=== PATIENT | male | born 1935 | race Caucasian/White ===

== ENCOUNTER 2017-05-25 06:33 | Outpatient (CLI) | payer MEDICARE, BC ==
[~2017-05-25] VITALS: Ht 175.3 cm; Wt 97.3 kg
--- NOTE | ~2017-05-25 | HEMODYNAMI ---
PATIENT:TRIP ALCARAZ MEDICAL RECORD: [id number] : 31 LOCATION:[facility] ADMISSION DATE: 05/25/17 Generatedon:05/25/201711:08 Patient name: TRIP ALCARAZ Patient #: [id number] SSN: : 1935 Date of study: 05/25/2017 Page: Of Hemodynamic Procedure Report Patient Data Patient Demographics Procedure consent was obtained First Name: TRIP Gender: Male Last Name: KIERAN : 1935 Middle Initial: E Age: 82 year(s) Patient #: [id number] Race: Unknown Additional ID: [id number] Contact details [address]: [address] [place] [address] State: [place] City: [place] Zip code: [address] Admission Admission Data Admission Date: 05/25/2017 Admission Time: 6:33 Procedure Procedure Types Cath Procedure Peripheral Cath Diagnostic Procedure Miscellaneous Procedure Description Procedure Date Procedure Date: 05/25/2017 Procedure Start Time: 10:01 Procedure Staff Name Function Niko Campbell MD Performing Physician Elías iRchmond RT Scrub Carolina Price RN Nurse Elías Richmond RT Monitor Procedure Data Cath Procedure Fluoroscopy Diagnostic fluoroscopy Total fluoroscopy Time: 7.6 time: 7.6 min min Diagnostic fluoroscopy Total fluoroscopy dose: 526 dose: 526 mGy mGy Contrast Material Contrast Material Type Amount (ml) Isovue 300 43 Diagnostic catheters Device Type Used For End Catheter Placement Merit Impress KA 2 5Fr 40CM catheter Procedure Medications Medication Administration Route Dosage Fentanyl I.V. 50 mcg Fentanyl I.V. 50 mcg Fentanyl I.V. 50 mcg Versed I.V. 1 mg Versed I.V. 1 mg Versed I.V. 1 mg Ancef (1Gm/50ml NS) 2 g Hemodynamics Rest Heart Rate: 96 (bpm) Snapshots Pre Cath Intra NCS Post Cath Vital Signs Time Heart Resp SPO2 NIBP (mmHg) Rhythm Pain Sedation Rate (ipm) (%) Status Level (bpm) 9:39:52 74 19 98 156/114(127) NSR 0 (11) 10(A) , No pain 9:44:12 70 21 98 161/118(139) NSR 0 (11) 10(A) , No pain 9:49:55 81 14 98 161/117(153) NSR 0 (11) 10(A) , No pain 9:55:39 77 17 98 163/105(136) NSR 0 (11) 10(A) , No pain 10:00:03 82 13 97 164/115(137) NSR 0 (11) 10(A) , No pain 10:04:23 84 15 96 169/102(133) NSR 0 (11) 10(A) , No pain 10:09:49 74 16 95 144/83(117) NSR 0 (11) 10(A) , No pain 10:14:01 78 14 92 151/92(129) NSR 0 (11) 10(A) , No pain 10:18:17 71 15 84 153/94(123) NSR 0 (11) 10(A) , No pain 10:22:37 74 13 90 148/91(119) NSR 0 (11) 10(A) , No pain 10:26:51 80 18 97 151/91(113) NSR 0 (11) 10(A) , No pain 10:31:05 76 14 97 137/98(127) NSR 0 (11) 10(A) , No pain 10:35:19 80 19 99 135/94(120) NSR 0 (11) 10(A) , No pain 10:39:33 67 13 88 130/83(104) NSR 0 (11) 10(A) , No pain 10:43:30 73 15 89 116/88(105) NSR 0 (11) 10(A) , No pain 10:47:40 71 15 90 136/83(127) NSR 0 (11) 10(A) , No pain 10:51:52 88 13 91 102/74(92) NSR 0 (11) 10(A) , No pain 10:56:02 71 14 95 103/62(90) NSR 0 (11) 10(A) , No pain 11:00:08 80 95 101/74(86) NSR 0 (11) 10(A) , No pain 11:04:13 68 96 105/70(81) NSR 0 (11) 10(A) , No pain Medications Time Medication Route Dose Verified Delivered Reason Notes Effectivene ss by by 10:05:11 Versed I.V. 1 mg Carolina Carolina for Albert Albert sedation RN RN 10:05:35 Fentanyl I.V. 50 Carolina Carolina for mcg Albert Albert sedation RN RN 10:14:35 Versed I.V. 1 mg Carolina Carolina for Albert Albert sedation RN RN 10:14:42 Fentanyl I.V. 50 Carolina Carolina for mcg Albert Albert sedation RN RN 10:20:50 Ancef 2 g Carolina Carolina (1Gm/50ml Albert Albert NS) RN RN 10:23:05 Versed I.V. 1 mg Carolina Carolina for Albert Albert sedation RN RN 10:23:50 Fentanyl I.V. 50 Carolina Carolina for mcg Albert Albert sedation RN gas load dispatcher Log Time Note 9:11:30 Elías Richmond RT (R) (CV) sent for patient. Start room use. 9:11:40 Time tracking: Regular hours 9:11:44 Plan of Care:Hemodynamics will remain stable., Cardiac rhythm will remain stable., Comfort level will be maintained., Respiratory function will remain adequate., Patient/ family verbilizes understanding of procedure., Procedure tolerated without complication., Recovers from procedure without complications.. 9:11:52 Patient received from Outpatients to IR Alert and oriented. Tansferred to table in Prone position. 9:12:02 Correct patient and procedure confirmed by team. 9:12:03 Signed procedure consent form obtained from patient. 9:12:04 ECG and BP/O2 sat monitors applied to patient. 9:12:10 Full Disclosure recording started 9:12:11 - 9:12:15 H&P Date Dictated: 05/25/2017 H&P Addendum completed by physician on day of procedure. (MUST COMPLETE FOR ALL OUTPATIENTS). 9:12:16 Pre-procedure instructions explained to patient. 9:12:16 Pre-op teaching completed and patient verbalized understanding. 9:12:18 Family in waiting room. 9:12:20 Patient NPO since Midnight. 9:12:26 Is the patient allergic to Iodine/contrast media? No. 9:12:28 Is patient on blood thinner?No 9:12:30 Patient diabetic? No. 9:12:33 - 9:12:34 ----Pre-sedation anethsthesia assessment.---- 9:12:36 Previous problem with sedation/anesthesia? No ? 9:12:37 Snore? Yes 9:12:39 Sleep apnea? No 9:12:46 Deviated septum? No 9:12:47 Opens mouth fully? Yes 9:12:52 Airway obstruction? Yes copad 9:12:57 Dentures? Yes out 9:13:02 Use device set IR Diagnostic 9:13:04 Acist Syringe opened to sterile field. 9:13:04 Acist Hand Control opened to sterile field. 9:13:05 Acist Manifold opened to sterile field. 9:13:05 Bag Decanter opened to sterile field. 9:13:05 Sterile Angiographic Pack opened to sterile field. 9:22:31 Pre procedure: right dorsailis pedis pulse Doppler 9:22:43 Pre procedure: right posterior tibial pulse Doppler 9:22:45 Sharps counted by scrub and verified by R.N. 9:22:45 Alarms reviewed by R. N. 9:22:51 Lumbar area was prepped with chlora-prep and draped in sterile fashion 9:38:24 Patient pain scale 0/10 no pain. 9:38:35 IV patent on arrival in right forearm with 0.9% NaCl at KVO. 9:38:45 Baseline sample Acquired. 9:38:45 Vital chart was started 9:38:51 Rhythm: sinus rhythm 9:59:17 Physician arrived 9:59:17 --------ALL STOP TIME OUT------ 9:59:18 Final Timeout: patient, procedure, and site verified with staff and physician. All members of the team are in agreement. 9:59:22 Lumbar site verified by team. 9:59:29 Physical assessment completed. ASA score P 3 - A patient with severe systemic disease as per Niko Campbell MD. 9:59:33 Sedation plan: IV Moderate Sedation Versed, Fentanyl 10:00:27 Procedure started. 10:01:43 Local anesthetic to Lumbar area with Lidocaine 1% by Niko Campbell MD.INITIAL ACCESS ONLY 10:01:46 KIT CATH TRNSLMBR ARTC TRNSLCNT opened to sterile field. 10:01:46 Cook DOC .035 guide wire opened to sterile field. 10:05:11 Versed 1 mg I.V. was administered by Carolina Price RN; for sedation; 10:05:35 Fentanyl 50 mcg I.V. was administered by Carolina Price RN; for sedation; 10:14:35 Versed 1 mg I.V. was administered by Carolina Price RN; for sedation; 10:14:42 Fentanyl 50 mcg I.V. was administered by Carolina Price RN; for sedation; 10:15:45 Steve BRITO 180 guide wire opened to sterile field. 10:20:50 Ancef (1Gm/50ml NS) 2 g was administered by Carolina Price RN; ; 10:21:49 A Merit Impress KA 2 5Fr 40CM catheter was advanced over the wire and used for . 10:23:05 Versed 1 mg I.V. was administered by Carolina Price RN; for sedation; 10:23:50 Fentanyl 50 mcg I.V. was administered by Carolina Price RN; for sedation; 10:24:[address] .035 145 glide wire opened to sterile field. 10:24:51 Terumo TORQUE DEVICE PLASTIC .038 opened to sterile field. 10:32:27 Cook MOVEABLE CORE guide wire opened to sterile field. 10:32:27 Cook Umu 20mm x 20cm Coil opened to sterile field. 10:36:24 Cook Umu 20mm x 20cm Coil opened to sterile field. 10:36:26 Cook Umu 20mm x 20cm Coil opened to sterile field. 10:38:06 Cook Umu 20mm x 20cm Coil opened to sterile field. 10:43:06 Procedure ended.(Physican Out) 10:47:01 Fluoroscopy time 07.60 minutes. 10:47:05 Fluoroscopy dose: 526 mGy 10:47:05 Flurop Dose total: 526 10:47:20 Contrast amount:Isovue 300 43ml. 10:52:41 Insertion/operative site no bleeding no hematoma. 10:52:48 Post Procedure Pulses reassessed and unchanged 10:53:04 Post Lumbar area:stable 10:53:08 Post-procedure physical assessment completed. ASA score P 3 - A patient with severe systemic disease as per Niko Campbell MD. 10:53:09 Post procedure instruction explained to patient.Patient verbalizes understanding. 10:53:10 Procedure and supply charges have been captured, reviewed, submitted an d are correct. 11:07:32 Report given to Outpatients. 11:07:36 Patient transfered to Outpatients with Bed. 11:08:15 Vital chart was stopped Device Usage Item Name Manufacture Quantity Catalog Hospital Part Current Minimal Lot# / Number Charge Number Stock Stock Serial# Code Acist Acist 1 67731 438230 236144 [id number] 20 Syringe Medical Systems Inc Acist Hand Acist 1 70095 880069 053318 253857 5 Control Medical Systems Inc Acist Acist 1 39031 644457 480256 940287 5 Manifold Medical Systems Inc Bag Decanter Microtek 1 2002S 406454 63604 526676 5 Medical Inc. Sterile Cardinal 1 [id number] 347721 984575 5 Angiographic Health Pack KIT CATH [facility] 1 Q66007 773095 203749 5 [id number] TRNSLMBR ARTC TRNSLCNT Cook [facility] Cook Medical 1 I77990 532727 399173 5 [id number] .035 guide wire Cook [facility] 1 O09192 439166 704984 5 [id number] 180 guide wire Merit Merit 1 [id number] 150867 152706 5 Impress KA 2 Medical 5Fr 40CM catheter Cook [facility] 1 S49784 090435 391467 5 [id number] ROADRUNNER .035 145 glide wire Terumo Freeman 1 TD01 518335 830754 683706 5 TORQUE Scientific DEVICE PLASTIC .038 [facility] 1 H04692 324062 928805 5 2562325 MOVEABLE CORE guide wire [facility] 4 [id number] 805940 105039 633726 5 [id number] 20mm x 20cm [id number] [facility] [id number] Signature Audit Commercial Point Stage Time Signature Unsigned Intra-Procedure 05/25/2017 Elías 11:08:12 AM Yi RT (R) (CV) Signatures Monitor : Eílas Signature : Yi RT Date : Time : [address] [address]
[2017-05-25 07:29] LABS: BASOPHILS 0.2 % (0-2); EOSINOPHILS 4.3 % (0-7); HEMATOCRIT 40.3 % (42.0-54.0); HEMOGLOBIN 14.3 g/dL (13.5-17.5); IMMATURE GRANULOCYTES 0.2 % (0-5); LYMPHOCYTES 15.9 % (15-50); MCH 34.5 pg (26.0-34.0); MCHC 35.5 g/dL (31.0-37.0); MCV 97.3 fL (80.0-100.0); MEAN PLATELET VOLUME 9.3 fL (7.4-10.4); MONOCYTES 15.6 % (2-11); NEUTROPHILS 63.8 % (40-80); PLATELET COUNT 128 10x3/uL (130-400); RBC 4.14 10x6/uL (4.20-6.10); RDW 13.3 % (11.5-14.5); WBC 4.4 10x3/uL (4.8-10.8)
[2017-05-25] MEDS ORDERED: PRESERVISION AR1 CAP PO (07:30)
[2017-05-25] MEDS ORDERED: K-TAB10 MEQ PO (07:31)
[2017-05-25] MEDS ORDERED: NEURONTIN 300300 MG PO (07:31)
[2017-05-25] MEDS ORDERED: HYDROCHLOROTHIA25 MG PO (07:32)
[2017-05-25] MEDS ORDERED: LOTREL 5/20 MG1 CAP (07:33)
[2017-05-25] MEDS ORDERED: CARDURA2 MG PO (07:33)
[2017-05-25] MEDS ORDERED: SYMBICORT 16010.2 GM INH (07:34)
[2017-05-25] MEDS ORDERED: COREG 3.1253.125 MG PO (07:34)
[2017-05-25] MEDS ORDERED: SPIRIVA18 MCG INH (07:35)
[2017-05-25] MEDS ORDERED: PROVENTIL HFA6.7 GM INH (07:36)
[2017-05-25 07:44] LABS: APTT 26.4 SECONDS (22.8-39.4); CALC OSMOLALITY 274 mosm/kg (275-300); CALCIUM 8.2 mg/dL (8.5-10.1); CARBON DIOXIDE 33.7 mmol/L (21.0-32.0); CHLORIDE - SERUM 98 mmol/L (98-107); CREATININE - SERUM 0.7 mg/dL (0.6-1.3); GLUCOSE 98 mg/dL (74-106); INR 1.28 (0.85-1.17); POTASSIUM - SERUM 3.5 mmol/L (3.5-5.1); PROTIME 15.8 SECONDS (11.6-15.0); SODIUM 138 mmol/L (136-145); UREA NITROGEN 9 mg/dL (7-18); eGFR NON AFRICAN AMERICAN > 90 mL/min (90-120)
[2017-05-25 07:59] VITALS: BP 140/90; Ht 175.3 cm; Wt 97.3 kg
--- NOTE | 2017-05-25 14:40 | NUR ---
1430 SITTING UP ON SIDE OF BED WITH URINAL IN PLACE. UNABLE TO VOID. Hari JOHNS R.N.
--- NOTE | 2017-05-25 15:51 | NUR ---
1445 ROUNDS BY [facility]. Hari JOHNS R.N.
--- NOTE | 2017-05-25 15:55 | NUR ---
1540 DRESSED. AWAKE & ALERT. GIVEN MED REC., [facility] ARTERIOGRAM D/C ISTRUCTIONS SHEET, [facility] D/C INSTRUCTIONS, & RTC APPT. PT VOICED UNDERSTANDING. TO PRIVATE CAR PER WHEELCHAIR BY THIS NURSE. HOME WITH , YENNY ALCARAZ. Hari JOHNS R.N.=
== END 2017-05-25 15:40 | disposition home or self-care (01) ==
LOC: D.OPS 06:33 → D.SP 08:00 → D.OPS 09:00 → D.SP 09:00 → D.OPS 15:40
PROVIDERS: Specialist
DX: T82.538A Leakage of other cardiac and vascular devices and implants, initial encounter (principal); Z01.812 Encounter for preprocedural laboratory examination

== ENCOUNTER 2019-02-16 11:26 | Outpatient (CLI) | payer MEDICARE, BC ==
[2019-02-15 07:23] LABS: BASOPHILS 0.1 % (0-2); EOSINOPHILS 0.3 % (0-7); HEMOGLOBIN 12.2 g/dL (13.5-17.5); IMMATURE GRANULOCYTES 0.1 % (0-5); LYMPHOCYTES 10.5 % (15-50); MCH 33.1 pg (26.0-34.0); MCHC 33.9 g/dL (31.0-37.0); MCV 97.6 fL (80.0-100.0); MEAN PLATELET VOLUME 9.8 fL (7.4-10.4); MONOCYTES 16.4 % (2-11); NEUTROPHILS 72.6 % (40-80); PLATELET COUNT 115 10x3/uL (130-400); RBC 3.69 10x6/uL (4.20-6.10); RDW 14.1 % (11.5-14.5); WBC 7.4 10x3/uL (4.8-10.8)
[2019-02-15 07:35] LABS: CALC OSMOLALITY 286 mosm/kg (275-300); CALCIUM 8.5 mg/dL (8.5-10.1); CARBON DIOXIDE 32.9 mmol/L (21.0-32.0); CHLORIDE - SERUM 104 mmol/L (98-107); GLUCOSE 111 mg/dL (74-106); POTASSIUM - SERUM 3.2 mmol/L (3.5-5.1); SODIUM 143 mmol/L (136-145); UREA NITROGEN 16 mg/dL (7-18); eGFR NON AFRICAN AMERICAN 75 mL/min (90-120)
[2019-02-15 07:49] LABS: APTT 33.6 SECONDS (22.8-39.4); INR 1.62 (0.85-1.17); PROTIME 18.6 SECONDS (11.6-15.0)
[~2019-02-16] VITALS: Ht 175.3 cm; Wt 95.5 kg
[~2019-02-16 11:26] MED LIST: CARDURA2 MG PO; COREG 3.1253.125 MG PO; HYDROCHLOROTHIA25 MG PO; K-TAB10 MEQ PO; LOTREL 5/20 MG1 CAP; NEURONTIN 300300 MG PO; PRESERVISION AR1 CAP PO; PROVENTIL HFA6.7 GM INH; SPIRIVA18 MCG INH; SYMBICORT 16010.2 GM INH
[2019-02-16 11:57] LABS: HEMATOCRIT 35.7 % (42.0-54.0); HEMOGLOBIN 12.6 g/dL (13.5-17.5); LYMPHOCYTES 11.2 % (15-50); MCH 34.5 pg (26.0-34.0); MCHC 35.3 g/dL (31.0-37.0); MCV 97.8 fL (80.0-100.0); MEAN PLATELET VOLUME 9.3 fL (7.4-10.4); NEUTROPHILS 76.9 % (40-80); PLATELET COUNT 117 10x3/uL (130-400); RBC 3.65 10x6/uL (4.20-6.10); RDW 14.1 % (11.5-14.5); WBC 6.7 10x3/uL (4.8-10.8)
[2019-02-16 12:04] LABS: APTT 32.4 SECONDS (22.8-39.4); INR 1.61 (0.85-1.17); PROTIME 18.6 SECONDS (11.6-15.0)
[2019-02-16 12:05] LABS: ANION GAP 8.4 mmol/L (8-16); CALCIUM 8.4 mg/dL (8.5-10.1); CREATININE - SERUM 1.1 mg/dL (0.6-1.3); POTASSIUM - SERUM 3.4 mmol/L (3.5-5.1)
[2019-02-16 13:08] LABS: ALBUMIN 3.1 g/dL (3.4-5.0); BILIRUBIN - DIRECT 0.69 mg/dL (0.00-0.30); BILIRUBIN - INDIRECT 1.48 mg/dL (0.00-1.00); BILIRUBIN - TOTAL 2.17 mg/dL (0.2-1.3); PROTEIN - SERUM 6.7 g/dL (6.4-8.2)
[2019-02-16] MEDS ORDERED: LASIX80 MG PO (13:20)
[2019-02-16] MEDS ORDERED: ELIQUIS2.5 MG PO (13:21)
[2019-02-16 13:26] VITALS: BP 126/80; Ht 175.3 cm; Wt 95.5 kg
--- NOTE | 2019-02-16 19:23 | NUR ---
NO PROCEDURE PERFORMED ON PATIENT DUE TO AN ELEVATED INR. DR VÁZQUEZ AND BEDSIDE AND STATES HE WILL MANAGE PATIENT THROUGH HIS OFFICE. IV D/C'D WITH CANNULA INTACT.
== END 2019-02-16 17:20 | disposition home or self-care (01) ==
LOC: D.SP 11:26
PROVIDERS: ATTEND Specialist
DX: I71.4 Abdominal aortic aneurysm, without rupture (principal); Z53.09 Procedure and treatment not carried out because of other contraindication; Z01.812 Encounter for preprocedural laboratory examination

== ENCOUNTER 2019-04-13 07:38 | Outpatient (CLI) | payer MEDICARE, BC ==
[~2019-04-13] VITALS: Ht 175.3 cm; Wt 90.7 kg
--- NOTE | ~2019-04-13 | HEMODYNAMI ---
PATIENT:TRIP ALCARAZ MEDICAL RECORD: [id number] : 31 [id number] ADMISSION DATE: 04/13/19 Generatedon:04/13/201911:55 Patient name: TRIP ALCARAZ Patient #: [id number] SSN: : 1935 Date of study: 04/13/2019 Page: Of Hemodynamic Procedure Report Patient Data Patient Demographics Procedure consent was obtained First Name: TRIP Gender: Male Last Name: KIERAN : 1935 [facility] Initial: E Age: 84 year(s) Patient #: [id number] Race: Unknown Additional ID: [id number] Contact details Address: [address] [place] [address] State: [place] City: [place] Zip code: [address] Past Medical History Allergies: No known allergies Admission Admission Data Admission Date: 04/13/2019 Admission Time: 7:38 Procedure Procedure Types Cath Procedure Peripheral Cath Diagnostic Procedure Abd/Extremity Aortagram Procedure Description Procedure Date Procedure Date: 04/13/2019 Procedure Start Time: 10:27 Procedure Staff Name Function Niko Campbell MD Performing Physician Dinorah Kaminski RT Corporate Travel Agent Caterina Ruby RN Nurse Olivia Glass RN Nurse Elías Richmond RT Scrub Procedure Data Cath Procedure Fluoroscopy Diagnostic fluoroscopy Total fluoroscopy Time: time: 12.2 min 12.2 min Diagnostic fluoroscopy Total fluoroscopy dose: 915 dose: 915 mGy mGy Contrast Material Contrast Material Type Amount (ml) Isovue 300 15 Procedure Medications Medication Administration Route Dosage Heparin Flush Bag added to field 2 bags (1000units/500ml NS) Lidocaine 1% added to field 20 Fentanyl I.V. 50 mcg Versed I.V. 1 mg Fentanyl I.V. 25 mcg Versed I.V. 0.5 mg Fentanyl I.V. 25 mcg Versed I.V. 0.5 mg Rocephin I.V. 1 g Fentanyl I.V. 25 mcg Versed I.V. 0.5 mg Versed I.V. 0.5 mg Fentanyl I.V. 25 mcg Hemodynamics Rest Heart Rate: 64 (bpm) Snapshots Pre Cath Intra NCS Post Cath Vital Signs Time Heart Resp SPO2 etCO2 NIBP (mmHg) Rhythm Pain Sedation Rate (ipm) (%) (mmHg) Status Level (bpm) 10:12:26 66 10 32.5 Time NSR 0 (11) 10(A) Exceeded , No pain 10:20:00 61 9 100 39.3 158/115(127) NSR 0 (11) 10(A) , No pain 10:24:17 59 10 99 40 150/101(142) NSR 0 (11) 10(A) , No pain 10:29:16 60 10 98 38.5 Measuring NSR 0 (11) 10(A) , No pain 10:29:22 64 11 98 37.8 159/109(125) NSR 0 (11) 10(A) , No pain 10:33:38 64 12 97 17.3 155/95(116) NSR 0 (11) 8(A) , No pain 10:37:48 60 15 94 1.5 134/86(100) NSR 0 (11) 8(A) , No pain 10:41:56 65 15 97 24.9 130/80(108) NSR 0 (11) 8(A) , No pain 10:46:18 73 19 94 46.1 121/33(111) NSR 0 (11) 8(A) , No pain 10:50:21 74 18 96 39.3 120/94(111) NSR 0 (11) 8(A) , No pain 10:54:25 80 18 96 43.1 127/84(121) NSR 0 (11) 8(A) , No pain 10:58:33 68 19 97 40.8 134/81(100) NSR 0 (11) 8(A) , No pain 11:02:45 71 19 96 43.8 119/77(100) NSR 0 (11) 8(A) , No pain 11:06:51 66 18 95 47.6 120/79(107) NSR 0 (11) 8(A) , No pain 11:10:56 67 10 95 42.3 126/82(95) NSR 0 (11) 8(A) , No pain 11:15:08 66 20 90 38.5 124/71(97) NSR 0 (11) 8(A) , No pain 11:19:18 70 19 87 34 112/77(99) NSR 0 (11) 8(A) , No pain 11:23:22 77 16 93 27.9 125/82(93) NSR 0 (11) 8(A) , No pain 11:27:38 74 23 92 29.5 128/57(103) NSR 0 (11) 8(A) , No pain 11:31:46 57 11 90 46.1 131/84(102) NSR 0 (11) 8(A) , No pain 11:35:56 73 17 93 32.5 131/81(107) NSR 0 (11) 8(A) , No pain 11:40:06 74 16 90 37 124/90(112) NSR 0 (11) 8(A) , No pain 11:44:11 64 19 91 35.5 119/88(99) NSR 0 (11) 8(A) , No pain 11:48:20 67 20 89 28.7 108/73(94) NSR 0 (11) 8(A) , No pain 11:52:23 45 17 90 13.6 90/63(73) NSR 0 (11) 8(A) , No pain Medications Time Medication Route Dose Verified Delivered Reason Notes Effec tiveness by by 10:09:43 Heparin Flush added 2 Niko Pope used for Bag to bags Campbell Campbell procedure (1000units/500ml field MD KERNS NS) 10:10:00 Lidocaine 1% added 20ml Niko Pope used for to vial Campbell Campbell procedure field MD KERNS 10:32:37 Fentanyl I.V. 50 Niko Diggs for mcg Campbell Ruby RN sedation 10:32:48 Versed I.V. 1 mg Niko Diggs for Campbell Ruby RN sedation 10:40:15 Fentanyl I.V. 25 Niko Digsg for mcg Campbell Ruby RN sedation 10:40:24 Versed I.V. 0.5 Niko Diggs for mg Campbell Ruby RN sedation 10:57:17 Fentanyl I.V. 25 Niko Diggs for mcg Campbell Ruby RN sedation 10:57:30 Versed I.V. 0.5 Niko Diggs for mg Campbell Ruby RN sedation 11:02:24 Rocephin I.V. 1 g Niko Diggs used for Campbell Ruby outpatient admitting clerk 11:09:47 Fentanyl I.V. 25 Niko Diggs for mcg Campbell Ruby RN sedation 11:09:55 Versed I.V. 0.5 Niko Diggs for mg Campbell Ruby RN sedation 11:27:38 Versed I.V. 0.5 Niko Snowi for mg Campbell Ruby RN sedation 11:27:48 Fentanyl I.V. 25 Niko Diggs for mcg Campbell Ruby RN sedation MD Procedure Log Time Note 9:51:25 Use device set IR Diagnostic 9:52:51 Intro TLA Needle/Sheath opened to sterile field. 9:52:52 Tegaderm 4 x 4 (1626W) opened to sterile field. 9:52:53 Sterile Angiographic Pack opened to sterile field. 9:52:54 Bag Decanter (2002S) opened to sterile field. 9:59:32 Time tracking: Regular hours (M-F 7:00 - 5:00) 9:59:47 Patient received from Outpatients to IR Alert and oriented. Tansferred to table in Supine position. 9:59:49 Correct patient and procedure confirmed by team. 9:59:51 Signed procedure consent form obtained from patient. 9:59:59 H&P Date Dictated: 04/13/2019 Within 30 days and on chart.. 10:00:01 Pre-procedure instructions explained to patient. 10:00:02 Pre-op teaching completed and patient verbalized understanding. 10:00:04 Family in waiting room. 10:00:11 Patient NPO since Midnight. 10:00:22 Patient allergic to No known allergies 10:00:32 Is the patient allergic to Iodine/contrast media? No. 10:00:36 Is patient on blood thinner?Yes 10:00:40 Patient diabetic? No. 10:00:48 - 10:00:49 ----Pre-sedation anethsthesia assessment.---- 10:00:53 Previous problem with sedation/anesthesia? No ? 10:00:56 Snore? Yes 10:01:02 Sleep apnea? No 10:01:05 Deviated septum? No 10:01:09 Opens mouth fully? Yes 10:01:12 Sticks out tongue? Yes 10:01:25 Airway obstruction? Yes ? 10::36 Airway obstruction? Yes chf, a-fib, copd 10:02:38 IV patent on arrival in left forearm with D5/.45%NaCl at O. 10:03:09 trans Lumbar area was prepped with chlora-prep and draped in sterile fashion 10:03:41 - 10:09:43 Heparin Flush Bag (1000units/500ml NS) 2 bags added to field was administered by Niko Campbell MD; used for procedure; 10::00 Lidocaine 1% 20ml vial added to field was administered by Niko Campbell MD; used for procedure; 10:18:29 Vital chart was started 10:26:48 Physician arrived 10:27:04 --------ALL STOP TIME OUT------ 10:27:05 Final Timeout: patient, procedure, and site verified with staff and physician. All members of the team are in agreement. 10:27:27 Procedure started. 10:27:28 Full Disclosure recording started 10:27:34 Local anesthetic to Lumbar area with Lidocaine 1% by Niko Campbell MD.INITIAL ACCESS ONLY 10:32:37 Fentanyl 50 mcg I.V. was administered by Caterina Ruby RN; for sedation; 10:32:48 Versed 1 mg I.V. was administered by Caterina Ruby RN; for sedation; 10:40:15 Fentanyl 25 mcg I.V. was administered by Caterina Ruby RN; for sedation; 10:40:24 Versed 0.5 mg I.V. was administered by Caterina Ruby RN; for sedation; 10:57:17 Fentanyl 25 mcg I.V. was administered by Caterina Ruby RN; for sedation; 10:57:30 Versed 0.5 mg I.V. was administered by Caterina Ruby RN; for sedation; 10:58:21 Direxion J Microcatheter ([id number]) opened to sterile field. 10:58:35 TRANSEND STEERABLE wire ([id number]) opened to sterile field. 11:02:24 Rocephin 1 g I.V. was administered by Caterina Ruby RN; used for procedure; 11:02:40 Baseline sample Acquired. 11:02:46 - 11:09:47 Fentanyl 25 mcg I.V. was administered by Caterina Ruby RN; for sedation; 11:09:55 Versed 0.5 mg I.V. was administered by Caterina Ruby RN; for sedation; 11:10:42 STOPCOCK 3-Way Large Bore ([id number]) opened to sterile field. 11:25:11 COIL Interlock 10 X 20 ([id number]) opened to sterile field. 11:27:38 Versed 0.5 mg I.V. was administered by Caterina Ruby RN; for sedation; 11:27:48 Fentanyl 25 mcg I.V. was administered by Caterina Ruby RN; for sedation; 11:34:04 Procedure ended.(Physican Out) 11:34:30 Fluoroscopy time 12.20 minutes. 11:34:37 Fluoroscopy dose: 915 mGy 11:34:37 Flurop Dose total: 915 11:34:42 Contrast amount:Isovue 300 15ml. 11:39:50 Procedure and supply charges have been captured, reviewed, submitted an d are correct. 11:55:03 Report given to Outpatients. 11:55:09 Patient transfered to Outpatients with Stretcher. 11:55:29 Vital chart was stopped Device Usage Item Name Manufacture Quantity Catalog Hospital Part Current Minim al Lot# / Number Charge Number Stock Stock Serial# Code Intro TLA [place] 1 [id number] 244141 [id number] 5 Needle/Sheath Scientific Tegaderm 4 x 3M 1 1626W 781335 259768 239948 5 4 (1626W) Sterile Cardinal 1 [id number] 234181 468083 5 Angiographic Health Pack Bag Decanter Microtek 1 2002S 025244 73366 238399 5 (2001S) Medical Inc. Direxion J [place] 1 [id number] 948479 992026 105195 5 Microcatheter Scientific ([id number]) TRANSEND [place] 1 [id number] 667875 402221 5 STEERABLE Scientific wire ([id number]) COIL [place] 1 [id number] 988978 123851 5 [id number] Interlock 10 Scientific X 20 ([id number]) [facility] 1 [id number] 400662 1360 392407 5 [id number] 3-Way Large Bore ([id number]) Signature Audit [place] Stage Time Signature Unsigned Intra-Procedure 04/13/2019 Dinorah Kaminski 11:55:25 AM RT(R) [address] [place] [address]
[~2019-04-13 07:38] MED LIST changes: -COREG 3.1253.125 MG PO; +COREG6.25 MG; +ELIQUIS2.5 MG PO; +LASIX80 MG PO
[2019-04-13 07:56] LABS: BASOPHILS 0.2 % (0-2); EOSINOPHILS 2.2 % (0-7); HEMATOCRIT 36.6 % (42.0-54.0); HEMOGLOBIN 12.6 g/dL (13.5-17.5); IMMATURE GRANULOCYTES 0.2 % (0-5); LYMPHOCYTES 14.2 % (15-50); MCH 32.7 pg (26.0-34.0); MCHC 34.4 g/dL (31.0-37.0); MCV 95.1 fL (80.0-100.0); MEAN PLATELET VOLUME 8.9 fL (7.4-10.4); MONOCYTES 15.3 % (2-11); NEUTROPHILS 67.9 % (40-80); PLATELET COUNT 103 10x3/uL (130-400); RBC 3.85 10x6/uL (4.20-6.10); RDW 14.7 % (11.5-14.5); WBC 4.5 10x3/uL (4.8-10.8)
[2019-04-13 08:05] LABS: CALC OSMOLALITY 287 mosm/kg (275-300); CALCIUM 8.2 mg/dL (8.5-10.1); CARBON DIOXIDE 34.3 mmol/L (21.0-32.0); CHLORIDE - SERUM 103 mmol/L (98-107); GLUCOSE 111 mg/dL (74-106); POTASSIUM - SERUM 3.3 mmol/L (3.5-5.1); SODIUM 143 mmol/L (136-145); UREA NITROGEN 19 mg/dL (7-18); eGFR NON AFRICAN AMERICAN 75 mL/min (90-120)
[2019-04-13 08:16] LABS: APTT 25.6 SECONDS (22.8-39.4); INR 1.36 (0.85-1.17); PROTIME 16.2 SECONDS (11.6-15.0)
[2019-04-13] MEDS ORDERED: ALDACTONE50 MG PO (09:22)
[2019-04-13 09:37] VITALS: BP 113/62; Ht 175.3 cm; Wt 90.7 kg
--- NOTE | 2019-04-13 15:55 | NUR ---
LEFT HAND PIV DC'D WITH TIP INTACT. DISCHARGE INSTRUCTIONS REVIEWED WITH PATIENT AND SPOUSE, PATIENT DRESSING IN PERSONAL CLOTHING WITH SPOUSE'S ASSISTANCE
--- NOTE | 2019-04-13 16:10 | NUR ---
DISCHARGED HOME VIA WHEELCHAIR TO PRIVATE VEHICLE WITH SPOUSE
== END 2019-04-13 16:10 | disposition home or self-care (01) ==
LOC: D.SP 07:38 → D.RAD 10:00 → D.SP 10:00
PROVIDERS: ATTEND Specialist
DX: N28.1 Cyst of kidney, acquired (principal); T82.330A Leakage of aortic (bifurcation) graft (replacement), initial encounter; Z01.812 Encounter for preprocedural laboratory examination

== ENCOUNTER → 2019-10-17 12:28 | Outpatient (CLI) | payer MEDICARE, BC ==
[~2019-10-17 12:28] MED LIST changes: +ALDACTONE50 MG PO
== END | disposition home or self-care (01) ==
LOC: D.CT 12:28
PROVIDERS: ATTEND Specialist
DX: I71.4 Abdominal aortic aneurysm, without rupture (principal)

== ENCOUNTER → 2020-03-06 11:05 | Outpatient (CLI) | payer MEDICARE, BC ==
[2020-03-06 12:24] LABS: INR 1.34 (0.85-1.17); PROTIME 16.5 SECONDS (11.6-15.0)
[2020-03-06 13:13] LABS: BASOPHILS 0.2 % (0-2); EOSINOPHILS 2.5 % (0-7); HEMATOCRIT 29.5 % (42.0-54.0); HEMOGLOBIN 9.1 g/dL (13.5-17.5); IMMATURE GRANULOCYTES 0.3 % (0-5); LYMPHOCYTES 10.5 % (15-50); MCH 29.3 pg (26.0-34.0); MCHC 30.8 g/dL (31.0-37.0); MCV 94.9 fL (80.0-100.0); MEAN PLATELET VOLUME 8.4 fL (7.4-10.4); MONOCYTES 11.8 % (2-11); NEUTROPHILS 74.7 % (40-80); RBC 3.11 10x6/uL (4.20-6.10); RDW 16.7 % (11.5-14.5); WBC 6.1 10x3/uL (4.8-10.8)
[2020-03-06 13:19] LABS: PLATELET COUNT 250 10x3/uL (130-400)
== END | disposition home or self-care (01) ==
LOC: D.LAB 11:05 → D.CT 12:00
PROVIDERS: ATTEND Specialist
DX: I71.4 Abdominal aortic aneurysm, without rupture (principal)